=== PATIENT | male | born 1965 | race African-American/Black ===

== ENCOUNTER 2024-06-27 08:40 | Emergency (ER) | payer SELFPAY ==
--- NOTE | 2024-06-27 08:42 | ED_ITS ---
HPI - Abdominal Pain General Chief Complaint: Abdominal Pain Stated Complaint: Abdominal Pain/Nausea Time Seen by Provider: 06/27/24 08:42 Source: patient Mode of arrival: ambulatory Limitations: no limitations History of Present Illness HPI narrative: Carlos is a 59-year-old male patient presenting to the clinic today with complaints of abdominal pain, constipation, and nausea x2 weeks. He reports he had a real bad cramp in the left upper abdomen weeks ago and after about 15-20 minutes the cramps subsided however he is still having some tenderness over that area. Reports that he had not had a bowel movement for approximately 1 week. States he the eating as he was concerned about the constipation over the past week. Did take some do Sp ox and had a bowel movement on the edge of or Thursday and states that it was a soft bowel movement at that time. Still having some left upper abdomen cramping at times. Denies any fevers, chills, or body aches. Vomiting but does have associated nausea. Is passing gas (belching and flatulence). Denies any urinary symptoms. Related Data Allergies Allergy/AdvReac Type Severity Reaction Status Date / Time No Known Allergies Allergy Verified 06/27/24 08:54 Review of Systems Review of Systems: Pertinent positives per HPI. Patient denies any fever, chills, rash, headache, visual changes, dizziness, cough, runny nose, sore throat, shortness of breath, chest pain, palpitations, vomiting, diarrhea, constipation, or any urinary issues. PMFSH Comments At the time of my signature, I reviewed and agree with the nursing past medical, surgical, social, and family history. There is no relevant family history pertinent to the patient complaint. Exam Narrative: General: Well-developed, well nourished, in no apparent distress. Head: Normocephalic, atraumatic. Cardio: Regular rate and rhythm, s1 and s2 normal, no murmur appreciated. Resp: Clear to auscultation bilaterally, no rhonchi, rales, wheezing or rubs. Abdomen: Soft, pliable, bowel sounds present in all quadrants, left upper quadrant mildly tender to palpation for patient, no grimacing, no guarding, no rebound, no organomegly, no CVAT tenderness. Course Course Emergency Course: Portions of this record may have been created with voice recognition software. Level of Care: Express Care Visit Vital Signs Vital signs: Vital Signs Temperature 36.8 C 06/27/24 08:50 Pulse Rate 77 06/27/24 08:50 Respiratory Rate 20 06/27/24 08:50 Blood Pressure 183/97 H 06/27/24 08:50 Pulse Oximetry 100 06/27/24 08:50 Oxygen Delivery Room Air 06/27/24 08:50 Temperature 36.8 C 06/27/24 08:50 Pulse Rate 77 06/27/24 08:50 Respiratory Rate 20 06/27/24 08:50 Blood Pressure 183/97 H 06/27/24 08:50 Pulse Oximetry 100 06/27/24 08:50 Oxygen Delivery Room Air 06/27/24 08:50 Vital signs reviewed MDM - Abdominal Pain MDM Narrative Medical decision making narrative: At the time of visit patient is resting comfortably on the exam table. Patient appears to be nontoxic. Plan: I suspect patient has left upper abdominal discomfort with constipation. Prescription for MiraLax was sent to the pharmacy. Patient denies any fevers. He is passing gas. No x-ray available in the clinic today. Supportive measures were discussed with the patient and they voiced understanding discharge instructions and agrees to treatment plan. Return precautions reviewed Differential Diagnosis Differential diagnosis: Likely abdominal pain, acute appendicitis, calculus of kidney, constipation, diverticulitis, gastroenteritis, pancreatitis and small bowel obstruction Discharge Plan Discharge Clinical Impression: Acute constipation Abdominal pain Qualifiers: Abdominal location: left upper quadrant Qualified Code(s): R10.12 - Left upper quadrant pain Patient Disposition: Home Condition: Stable Instructions: Antibiotic Form, Constipation (ED), Abdominal Pain (ED) Additional Instructions: Take prescription medications only as prescribed-MiraLax Increase fiber in your diet Increase fluids and stay well hydrated Tylenol/motrin for pain/fever Clear liquids x 24 hours then advance as tolerated for nausea/vomiting Go to the ED if you develop a worsening in your condition- high fever not controlled by Tylenol or Motrin, dehydration, weakness, lethargy, shortness of breath, or chest pain. Follow up with your PCP in 3-5 days if symptoms persist. Patient Language: [place] Prescriptions: New polyethylene glycol 3350 [Miralax] 17 gram powder in packet 17 g PO DAILY PRN (Reason: constipation) 30 Days Qty: 30 0RF Follow-up/Referrals: Marla Castelan DO [Physician] - 1 Day (Establish primary care) UNKNOWN,DOCTOR [Non-Staff] - Time of Disposition: 08:59 Quality NIHSS Nursing Documentation ED NIHSS nursing documentation: reviewed/agree
[2024-06-27 08:50] VITALS: BP 183/97; PULSE 77; RESP 20; TEMP 36.8; O2SAT 100
[2024-06-27 09:05] VITALS: BP 162/94
== END 2024-06-27 09:05 | disposition home or self-care (01) ==
PROVIDERS: Emergency Provider Nurse Practitioner Family
DX: K59.00 Constipation, unspecified (principal); R10.12 Left upper quadrant pain
CPT/HCPCS: 99203; G0463